=== PATIENT | male | born 1965 | race Caucasian/White ===

== ENCOUNTER 2016-11-16 12:58 | Day surgery (SDC) | payer BC ==
[~2016-11-16] VITALS: Ht 177.8 cm; Wt 106.0 kg
[2016-11-16 14:51] VITALS: Ht 177.8 cm; Wt 106.0 kg
[2016-11-16 16:49] VITALS: BP 138/74; PULSE 65; RESP 18
--- NOTE | 2016-11-16 17:06 | OPPN ---
Date/Time of Note Date/Time of Note DATE: 11/16/16 TIME: 17:05 Operative Report Preoperative Diagnosis Colorectal cancer screening Postoperative Diagnosis Impression: * Diverticulosis left side of the colon, moderate * Moderate-sized internal hemorrhoids * Otherwise normal colonoscopy to cecum Plan: * High-fiber diet * Follow-up as previously scheduled * Annual Hemoccult stool testing * Screening colonoscopy in 10 years . Operation/Procedure Performed Colonoscopy to cecum Provider: TAMRA DODD MD Anesthesia Type: moderate sedation (Versed 6 mg/fentanyl 100 mcg) Estimated blood loss: none Transfusion Required: no Specimen: none Grafts/Implants: none Complications: no TAMRA DODD MD Nov 16, 2016 17:06
[2016-11-16] MEDS ORDERED: MIDAZOLAM 1 MG/ML 2 ML INJ ONE ×3 (17:13→17:14)
[2016-11-16] MEDS ORDERED: FENTAnyl 50 MCG/ML VIAL ONE (17:13)
== END 2016-11-16 18:10 | disposition home or self-care (01) ==
LOC: GIL 12:58
PROVIDERS: ATTEND Internal Medicine Gastroenterology
DX: Z12.11 Encounter for screening for malignant neoplasm of colon (principal); K57.90 Diverticulosis of intestine, part unspecified, without perforation or abscess without bleeding; K64.8 Other hemorrhoids; I10 Essential (primary) hypertension
CPT/HCPCS: 45378; J2250; J3010; Z7610